=== PATIENT | female | born 1945 | race Caucasian/White ===

== ENCOUNTER 2019-12-28 10:56 | Inpatient (IN) ==
--- NOTE | 2019-12-13 15:42 | PAT Medication Instructions ---
Medication Instructions Date of Service December 13, 2019 Home Medications acetaminophen [Arthritis Pain Reliever] 1,300 mg PO Q12H PRN ascorbic acid (vitamin C) 1,000 mg PO QAM aspirin [Aspir-81] 81 mg PO HS bisoprolol fumarate 2.5 mg PO QAM budesonide-formoterol [Symbicort] 2 puff INHALATION BID calcium carbonate [Calcium 600] 600 mg PO BID cholecalciferol (vitamin D3) 125 mcg PO BID diphenoxylate-atropine 1 tab PO Q4H PRN ferrous sulfate 325 mg PO 5XWK montelukast 10 mg PO HS multivitamin 1 tab PO QAM pravastatin 40 mg PO HS turmeric root extract 1,000 mg PO BID vitamin B complex 1 tab PO QAM STOP taking 2 weeks before surgery If surgery is within 2 weeks, stop taking as soon as possible. turmeric root extract 1,000 mg PO BID DO NOT take the morning of surgery acetaminophen [Arthritis Pain Reliever] 1,300 mg PO Q12H PRN ascorbic acid (vitamin C) 1,000 mg PO QAM calcium carbonate [Calcium 600] 600 mg PO BID cholecalciferol (vitamin D3) 125 mcg PO BID diphenoxylate-atropine 1 tab PO Q4H PRN ferrous sulfate 325 mg PO 5XWK multivitamin 1 tab PO QAM vitamin B complex 1 tab PO QAM Take morning of surgery With a small sip of water, OTHERWISE NOTHING TO EAT OR DRINK AFTER MIDNIGHT: bisoprolol fumarate 2.5 mg PO QAM budesonide-formoterol [Symbicort] 2 puff INHALATION BID Take evening before surgery acetaminophen [Arthritis Pain Reliever] 1,300 mg PO Q12H PRN (if needed) aspirin [Aspir-81] 81 mg PO HS budesonide-formoterol [Symbicort] 2 puff INHALATION BID calcium carbonate [Calcium 600] 600 mg PO BID cholecalciferol (vitamin D3) 125 mcg PO BID diphenoxylate-atropine 1 tab PO Q4H PRN (if needed) montelukast 10 mg PO HS pravastatin 40 mg PO HS Other Notes If you have any questions please call us at [phone] or [phone] or [phone] or [phone]
--- NOTE | 2019-12-14 10:23 | Anesthesiology Consultation ---
Date of Service December 14, 2019 Assessment & Plan (1) Encounter for pre-operative examination: COVID Status: As of 12/13 assessment, patient denies travel to endemic area, known exposure/sick contacts, or symptoms of COVID19. Patient instructed that they and their household members must follow strict social distancing guidelines, wear a mask in public and avoid travel for 14 days prior to surgery. Preoperative COVID19 testing to be completed prior to surgery per surgeon's arra ngements. Patient made aware to self-isolate as much as possible between COVID testing and surgery. Chart Review Chart Review: Acceptable Risk for Surgery (pending PCP clearance 12/14, note to cardio re: abnormal EKG, await response) and Patient seen in Pre Admission Testing Teaching & Discussion Instructed NPO after midnight before surgery, except medications with 15 cc of water. Medication instructions provided according to the PAT guidelines. History Surgery Operation Date: 12/28/19 10:05 Proposed Procedures p L4-L5 Decompression and Fusion, Spinal Cord Monitoring - Boubacar Pina, Height/Weight Height: 5 ft 2 in Weight: 90.8 kg Allergies Allergy/AdvReac Type Severity Reaction Status Date / Time hydromorphone [From Dilaudid] Allergy Unknown ITCHY Verified 12/08/19 11:50 Iodinated Contrast Media Allergy Unknown ITCHING Verified 12/08/19 11:50 codeine AdvReac Unknown NAUSEA AND Verified 12/08/19 11:50 VOMITING duloxetine [From Cymbalta] AdvReac Unknown Unknown Verified 12/08/19 11:50 Penicillins AdvReac Unknown FOGGY Verified 12/08/19 11:50 HEAD, DISORIENTED tramadol AdvReac Unknown Unknown Verified 12/08/19 11:50 Medications Home Medications Medication Instructions Recorded Confirmed Last Taken acetaminophen [Arthritis Pain 1,300 mg PO Q12H PRN 12/08/19 12/08/19 Unknown Reliever] ascorbic acid (vitamin C) [Vitamin 1,000 mg PO QAM 12/08/19 12/08/19 Unknown C] aspirin [Aspir-81] 81 mg PO HS 12/08/19 12/08/19 Unknown bisoprolol fumarate 2.5 mg PO QAM 12/08/19 12/08/19 Unknown budesonide-formoterol [Symbicort] 2 puff INHALATION BID 12/08/19 12/08/19 Unknown calcium carbonate [Calcium 600] 600 mg PO BID 12/08/19 12/08/19 Unknown cholecalciferol (vitamin D3) 125 mcg PO BID 12/08/19 12/08/19 Unknown [Vitamin D3] diphenoxylate-atropine 1 tab PO Q4H PRN 12/08/19 12/08/19 Unknown ferrous sulfate 325 mg PO 5XWK 12/08/19 12/08/19 Unknown montelukast 10 mg PO HS 12/08/19 12/08/19 Unknown multivitamin 1 tab PO QAM 12/08/19 12/08/19 Unknown pravastatin 40 mg PO HS 12/08/19 12/08/19 Unknown turmeric root extract 1,000 mg PO BID 12/08/19 12/08/19 Unknown vitamin B complex 1 tab PO QAM 12/08/19 12/08/19 Unknown Past Medical History Medical History (Updated 12/14/19 @ 11:04 by Niles York) AAA (abdominal aortic aneurysm) UNDER OBSERVATION Arthritis Cardiomyopathy EF 45% with global HK on [address] Pritchett. Chronic back pain Chronic obstructive pulmonary disease Fibromyalgia Hyperlipidemia Hypertension SOBOE (shortness of breath on exertion) Thoracic aortic aneurysm S/P repair at [facility] ~2018 Exercise / Class Metabolic Activity III < 4 Walking/Shop/Light housework (Limited by leg weakness, mild GARCIA with ambulation over longer distances, denies any chest pain) Past Surgical History Surgical History (Updated 12/14/19 @ 10:34 by Niles York) History of appendectomy History of cataract surgery R/L History of cholecystectomy History of colonoscopy History of esophagogastroduodenoscopy (EGD) History of hysterectomy TOTAL History of total hip arthroplasty LEFT Nausea and vomiting after administration of anesthetic agent HX S/P aneurysm repair Thoracic, 2018 [facility]. Past Anesthesia History No Hx of Anesthesia Complications and No Family Hx of Anesthesia Complications History of PONV History of PONV and Hx of Motion Sickness Social History Smoking Status: Former smoker Do You Dip or Chew Tobacco: No Smoking End Date: QUIT 14 YRS AGO Hx Alcohol Use: No Hx Substance Use: No Review of Systems Pt denies any recent chest pain, shortness of breath above baseline, palpitations, cough, fever, URI. + occasional acid reflux. Physical Exam Vital Signs BP: 95/64 (pt denies any symptoms) P: 64bpm SPO2: 93% RA T: 98.3 F R: 16 ENMT Mouth: + dentition abnormality (missing all top teeth and most bottom molars) and + dentures (full upper); no chipped teeth and no loose teeth Thyromental Distance: > or= 3.5 Finger Breadths Mallampati Class: II Neck normal visual inspection; neck extension not limited Respiratory normal respiratory effort Auscultation: lungs clear to auscultation bilaterally prolonged expiratory phase Cardiovascular Rate/Rhythm: regular rate and regular rhythm Heart Sounds: no murmur Vessels: no carotid bruit Extremities: no edema Testing Laboratory Results 12/14/19 10:35 12/14/19 10:35 PT 10.9 Seconds (9.0-12.0) 12/14/19 10:35 INR 1.0 (0.9-1.1) 12/14/19 10:35 APTT 27.7 Seconds (21.0-31.0) 12/14/19 10:35 Urine Color Yellow 12/14/19 10:35 Urine Appearance Clear (Clear) 12/14/19 10:35 Urine pH 6.5 (4.5-7.5) 12/14/19 10:35 Ur Specific [place] 1.015 (1.000-1.030) 12/14/19 10:35 Urine Protein Negative (Negative) 12/14/19 10:35 Urine Glucose (UA) Negative (Negative) 12/14/19 10:35 Urine Ketones Negative (Negative) 12/14/19 10:35 Urine Nitrite Negative (Negative) 12/14/19 10:35 Ur Leukocyte Esterase Negative (Negative) 12/14/19 10:35 Blood Type A Positive 12/14/19 10:35 Antibody Screen NEGATIVE 12/14/19 10:35 Electrocardiogram Date: 12/14/19 Findings: + NSR @ (62bpm) ST and T wave abnormality, consider anterior ischemia. Chest X-Ray Date: 12/14/19 Findings: + NAD Echocardiogram Date: 01/19/18 EF: 45% Left ventricle size is normal. There is mild global LV hypokinesis. No significant valve disease. The aortic root, ascending aorta and aortic arch are normal.
--- NOTE | 2019-12-14 11:43 | XRay Report ---
XR chest Pre-admission PA/Lat HISTORY: 74 years-old Female pat preoperative exam. No acute chest complaints COMPARISON: None TECHNIQUE: FINDINGS: Graft of the descending thoracic aorta with aneurysmal dilation. Cardiomegaly. No pneumothorax, large pleural effusion or overt pulmonary edema. Mild interstitial coarsening of the lung bases suggest at electasis/scarring. Bones appear grossly intact. IMPRESSION: No acute process. ACT 112: Negative or not required by law. The above report was generated using voice recognition software. It may contain grammatical, syntax o r spelling errors. Electronically signed by: Froy Erazo M.D. 12/14/2019 11:41 AM
[2019-12-14 11:45] LABS: Basophils # (auto) 0.04 K/uL (0-0.2); Basophils % (auto) 0.3 %; Eosinophils # (auto) 0.29 K/uL (0-0.5); Eosinophils % (auto) 2.5 %; Hematocrit (blood only) 40.3 % (37-47); Hemoglobin 12.8 g/dL (12.0-16.0); Immature Granulocytes # (auto) 0.04 K/uL (0.00-0.02); Immature Granulocytes % (auto) 0.3 %; Lymphocytes # (auto) 2.62 K/uL (1.2-3.4); Lymphocytes % (auto) 22.4 %; Mean Corpuscular Hemoglobin 27.6 pg (25-34); Mean Corpuscular Hgb Conc 31.8 g/dL (32-36); Mean Corpuscular Volume 86.9 fL (80-100); Mean Platelet Volume 9.3 fL (7.4-10.4); Monocytes # (auto) 0.97 K/uL (0.11-0.59); Monocytes % (auto) 8.3 %; Neutrophils # (auto) 7.75 K/uL (1.4-6.5); Neutrophils % (auto) 66.2 %; Platelet Count 405 K/uL (130-400); RDW Coefficient of Variation 15.5 % (11.5-14.5); RDW Standard Deviation 49.4 fL (36.4-46.3); Red Blood Count 4.64 M/uL (4.2-5.4); White Blood Count 11.71 K/uL (4.8-10.8)
[2019-12-14 12:11] LABS: Partial Thromboplastin Time 27.7 Seconds (21.0-31.0); Prothrombin Time 10.9 Seconds (9.0-12.0)
[2019-12-14 12:33] LABS: Appearance Urine Clear (Clear); Bilirubin Urine Negative (Negative); Blood Urine Negative (Negative); Color Urine Yellow; Glucose Urine UA Negative (Negative); Ketones Urine Negative (Negative); Leukocyte Esterase Urine Negative (Negative); Nitrite Urine Negative (Negative); Protein Urine Negative (Negative); Specific Gravity Urine 1.015 (1.000-1.030); Urobilinogen Urine Negative (Negative); pH Urine 6.5 (4.5-7.5)
--- NOTE | 2019-12-14 13:10 | Electrocardiogram Report ---
Test Reason : Blood Pressure : / mmHG Vent. Rate : 062 BPM Atrial Rate : 062 BPM P-R Int : 146 ms QRS Dur : 090 ms QT Int : 418 ms P-R-T Axes : 062 058 071 degrees QTc Int : 424 ms Normal sinus rhythm Abnormal ECG No previous ECGs available Confirmed by Aron Juarez ([id number]) on 12/14/2019 1:10:38 PM Referred By: Boubacar Pina Confirmed By:Aron Juarez
[2019-12-14 14:12] LABS: BUN Creatinine Ratio 20.5 (10-20); Calcium 10.6 mg/dl (8.5-10.1); Est GFR (African American) 78.2; Est GFR (Non-African American) 67.5; Potassium 4.4 mmol/L (3.5-5.1)
[~2019-12-28 10:56] MED LIST: CEFAZOLIN 2000MG 2,000 MG/15 ML SYR IV SCH; CLINDAMYCIN 600 MG/54 ML BAG IV SCH; GABAPENTIN 300 MG CAP PO SCH; LR 15ML/HR IV SCH
[2019-12-28] MEDS ORDERED: LARYING-O-JET KIT (LTA) ONE (11:50)
[2019-12-28] MEDS ORDERED: LIDOCAINE HCL 2% 2 ML VIAL/AMP(20MG/ML) INFIL ONE (11:50)
[2019-12-28] MEDS ORDERED: fentaNYL citrate 100 MCG/2 ML VIAL ONE ×2 (11:51→15:39)
[2019-12-28] MEDS ORDERED: MIDAZOLAM HCL 1 MG/ML 2ML VIAL ONE (11:51)
[2019-12-28] MEDS ORDERED: ROCURONIUM BROMIDE 10 MG/ML 5 ML VIAL IV ONE (11:52)
[2019-12-28] MEDS ORDERED: ONDANSETRON INJ 2 MG/ML 2 ML VIAL ONE (11:52)
[2019-12-28] MEDS ORDERED: PROPOFOL IV EMULSION 10 MG/ML 20 ML VIAL IV ONE (11:52)
[2019-12-28] MEDS ORDERED: DEXAMETHASONE SOD INJ 4 MG/ML VIAL ONE (11:52)
[2019-12-28] MEDS ORDERED: NEOSTIGMINE METHYLSULFATE 1 MG/ML 10ML VIAL ONE (11:52)
[2019-12-28] MEDS ORDERED: GLYCOPYRROLATE 0.2 MG/ML VIAL ONE (11:52)
[2019-12-28] MEDS ORDERED: HYDROmorphone INJ 2 MG/ML SYR/VIAL IV PRN (12:43)
[2019-12-28] MEDS ORDERED: ATROPINE SULFATE 0.1 MG/ML 10ML SYR IV PRN (12:43)
[2019-12-28] MEDS ORDERED: ONDANSETRON INJ 2 MG/ML 2 ML VIAL IV PRN ×3 (12:43→16:58)
[2019-12-28] MEDS ORDERED: ePHEDrine sulfate 50 MG/ML AMP IV PRN (12:43)
[2019-12-28] MEDS ORDERED: METOCLOPRAMIDE HCL INJ 5 MG/ML 2 ML VIAL IV PRN ×3 (12:43→16:58)
[2019-12-28] MEDS ORDERED: PROMETHAZINE HCL 12.5 MG in SODIUM CHLORIDE 0.9% 50 ML IV PRN ×2 (12:43→16:58)
--- NOTE | 2019-12-28 13:34 | History & Physical Bridge Note ---
Date of Service December 28, 2019 History & Physical Bridge Note I have examined the patient, reviewed the History & Physical and in the interval since the performance of the History & Physical I have noted the following changes of clinical significance: no changes noted
--- NOTE | 2019-12-28 13:35 | History & Physical Report ---
Date of Service December 28, 2019 Assessment & Plan (1) Neurogenic claudication due to lumbar spinal stenosis: Admission and Anticipated Discharge Date Admission Date: L4-L5 decompression fusion History of Present Illness Chief Complaint: Back and leg pain Primary Care Provider: NO PCP This is a 74-year-old female presents with back and leg pain after failing course of nonoperative care is here for surgical intervention. Allergies Allergy/AdvReac Type Severity Reaction Status Date / Time hydromorphone [From Dilaudid] Allergy Mild ITCHY Verified 12/28/19 11:37 Iodinated Contrast Media Allergy Mild ITCHING Verified 12/28/19 11:37 codeine AdvReac Mild NAUSEA AND Verified 12/28/19 11:37 VOMITING Penicillins AdvReac Mild FOGGY Verified 12/28/19 11:37 HEAD, DISORIENTED duloxetine [From Cymbalta] AdvReac Unknown Unknown Verified 12/28/19 11:37 tramadol AdvReac Unknown Unknown Verified 12/28/19 11:37 Home Medications Home Medications Medication Instructions Recorded Confirmed Type acetaminophen [Arthritis Pain 1,300 mg PO Q12H PRN 12/08/19 12/28/19 History Reliever] ascorbic acid (vitamin C) [Vitamin 1,000 mg PO QAM 12/08/19 12/28/19 History C] aspirin [Aspir-81] 81 mg PO HS 12/08/19 12/28/19 History bisoprolol fumarate 2.5 mg PO QAM 12/08/19 12/28/19 History budesonide-formoterol [Symbicort] 2 puff INHALATION BID 12/08/19 12/28/19 History calcium carbonate [Calcium 600] 1,200 mg PO DAILY 12/08/19 12/28/19 History cholecalciferol (vitamin D3) 125 mcg PO DAILY 12/08/19 12/28/19 History [Vitamin D3] diphenoxylate-atropine 1 tab PO Q4H PRN 12/08/19 12/28/19 History ferrous sulfate 325 mg PO 5XWK 12/08/19 12/28/19 History montelukast 10 mg PO HS 12/08/19 12/28/19 History multivitamin 1 tab PO QAM 12/08/19 12/28/19 History pravastatin 40 mg PO HS 12/08/19 12/28/19 History turmeric root extract 1,000 mg PO BID 12/08/19 12/28/19 History vitamin B complex 1 tab PO QAM 12/08/19 12/28/19 History Past Med/Surg History Medical History (Updated 12/28/19 @ 13:35 by Boubacar Pina DO) AAA (abdominal aortic aneurysm) UNDER OBSERVATION Arthritis Cardiomyopathy EF 45% with global HK on [address] Pritchett. Chronic back pain Chronic obstructive pulmonary disease Fibromyalgia Hyperlipidemia Hypertension SOBOE (shortness of breath on exertion) Thoracic aortic aneurysm S/P repair at [facility] ~2018 Surgical History History of appendectomy History of cataract surgery R/L History of cholecystectomy History of colonoscopy History of esophagogastroduodenoscopy (EGD) History of hysterectomy TOTAL History of total hip arthroplasty LEFT Nausea and vomiting after administration of anesthetic agent HX S/P aneurysm repair Thoracic, 2018 [facility]. Social History Smoking Status: Former smoker Smoking End Date: QUIT 14 YRS AGO; Second Hand Exposure: Yes (PARENTS /SPOUSE USED TO SMOKE); Do You Dip or Chew Tobacco: No; Hx Alcohol Use: No Hx Substance Use: No Preferred Language: Yoruba Communication Ability: Effective Nail Technician Required: No Beliefs That Will Affect Care: None Current Living Situation: Spouse Other Information That Helps Us Care for You: No Feels Safe at Home: Yes Safety Concerns: Feels Safe At This Time Physical Exam Physical Exam: Patient is alert and oriented neurologically intact. Heart regular rate and rhythm. Lungs clear to auscultation. Results & Data ([facility]) Vital Signs (Past 12 Hours) Vital Signs Temp Pulse Resp BP Pulse Ox 12/28/19 11:46 37.2 C 65 18 144/99 H 93
[2019-12-28] MEDS ORDERED: BUPIVACAINE/EPINEPHRINE 0.25% 1:200,000 30 ML VIAL ONE (13:53)
[2019-12-28] MEDS ORDERED: BACITRACIN INJ 50,000 UNIT VIAL ONE (13:53)
[2019-12-28] MEDS ORDERED: FLOSEAL HEMOSTATIC MATRIX 10ML TOP ONE (15:37)
--- NOTE | 2019-12-28 15:43 | Operative Report ---
Post Operative Report Pre & Post Diagnosis Operation Date: 12/28/19 12:55 <No data on this case meets the specified criteria> I identified the patient and participated in the time-out.: Yes Procedure Operation Date: 12/28/19 12:55 #1 lumbar decompression with bilateral medial facetectomies and foraminotomies L3-4 and L4-5 per #2 posterior spinal fusion L4-5 per #3 placement posterior instrumentation L4-5 per #4 interbody fusion L4-5. #5 placed a peek cage 12 x 22 mm at L4-5. #6 placement of locally harvested morselized autograft in the posterior gutters per #7 placement infuse collagen sponge, master graft and posterior gutters and ostial amp and interbody space. Surgeon Boubacar Pina, Quality Control Operator Lorena Fritz Estimated Blood Loss 150 Findings See Below Patient is 5 foot 2 inches tall weighing over 89 kg with a BMI in excess of 36. Patient's body habitus did add increased technical difficulty requiring her deepest retractors and longus instruments in order to perform her procedure. This at least 25% increase in operative time. Specimens None Indications This is a 74-year-old female who presents with marked clinical status significa nt sciatica and instability at L4-5 and subsequently here for surgical intervention. Description of Procedure Patient was met with identified informed consent obtained. Patient was then taken to the operative suite underwent an patient placed in a prone position on the Dwain table on top of the Chandu frame. All bony prominences well-padded eyes inspected to ensure no external pressure placed upon the. This point the lumbar spine was prepped and draped in a sterile fashion. Sharp dissection with assistance of Bovie cautery was performed down to and exposing the lamina and transverse processes of L4 and L5 bilaterally. From caudal cephalad fashion complete laminectomy of L4 and partial laminectomy of L3 was performed including bilateral medial facetectomies and foraminotomies addressing stenosis. Pedicle screws were then placed in L4 and L5 bilaterally with assistance of fluoroscopy the proper sized jase placed. By way of a transforaminal approach on the right a complete discectomy was performed endplates coated to subcortical bleeding bone and a 12 x 22 mm peek cage with osteo-bone graft tapped in position. The rods were then locked into final position bilaterally. The transverse processes of L4 and L5 bur to subcortical bleeding bone. Infuse collagen sponge mass graft local autograft was placed in the posterior lateral gutters. 15 round THA drain inserted. The incision was then closed with 1 Vicryl the fascia 2-0 Vicryl subcutaneously and 4 Monocryl for final skin closure. Steri-Strip sterile dressings placed. Patient waken taken PACU stable condition. Please note spinal cord monitoring visualized at the procedure no changes noted. Lastly Lorena Fritz was present at the entire surgery involved in patient positioning complex portions of the procedure and final skin closure. I attest to the content of the Intraoperative Record and any orders documented therein. Any exceptions are noted below.
--- NOTE | 2019-12-28 15:48 | Fluoroscopy Report ---
FL lumbar spine 2-3V CLINICAL HISTORY: L4-5 DECOMPRESSION AND FUSION COMPARISON STUDY: FLUOROSCOPY TIME: 16 seconds. NUMBER OF FLUOROSCOPIC IMAGES: 2 FINDINGS: 2 intraoperative fluoroscopic spot images reveal postsurgical changes of an L 4-5 discectom y and interbody fusion. There is posterior pedicle screw fixation. IMPRESSION: Postsurgical changes of an L4-5 spinal decompression and fusion. ACT 112: Negative or not required by law. Electronically signed by: Lauro Sierra M.D. 12/28/2019 3:46 PM
[2019-12-28] MEDS: fentaNYL citrate 100 MCG/2 ML VIAL IV PRN ×2 (16:14→16:19)
--- NOTE | 2019-12-28 16:35 | Anesthesiology Progress Note ---
Date of Service December 28, 2019 Anesthesia Post Procedure Vital Signs Vital Signs: Temp Pulse Pulse Resp BP Pulse Ox 12/28/19 16:34 36.9 C 55 L 16 132/72 95 12/28/19 16:25 70 16 132/84 95 12/28/19 16:15 50 L 16 143/68 H 99 12/28/19 16:05 60 16 122/91 99 12/28/19 15:58 37.0 C 60 16 137/80 99 12/28/19 11:46 37.2 C 65 18 144/99 H 93 Pain Intensity Lower Back: Pain Intensity: 4 Transfer of Care Handoff Completed per policy Notes Mental Status: alert / awake / arousable and participated in evaluation Patient Amnestic to Procedure: Yes Nausea / Vomiting: adequately controlled Pain: adequately controlled Airway Patency, RR, SpO2: stable & adequate BP & HR: stable & adequate Hydration State: stable & adequate Anesthetic Complications: no major complications apparent and Pt Satisfied with anesthetic care
[2019-12-28] MEDS ORDERED: DO NOT ADMINISTER FLU VACCINE PRN ×2 (16:58)
[2019-12-28] MEDS ORDERED: ACETAMINOPHEN 500 MG TAB PO PRN (16:58)
[2019-12-28] MEDS ORDERED: LORazepam 0.5 MG/1 ML VIAL IV PRN ×2 (16:58)
[2019-12-28] MEDS ORDERED: DO NOT ADMINISTER PNEUMOCOCCAL VACCINE PRN ×2 (16:58)
[2019-12-28] MEDS ORDERED: SOD PHOSPHATE/SOD BIPHOSPHATE ENEMA 132 ML BTL PR PRN ×2 (16:58)
[2019-12-28] MEDS ORDERED: FAMOTIDINE 20 MG TAB PO PRN ×2 (16:58)
[2019-12-28] MEDS ORDERED: NALOXONE HCL 0.4 MG/1 ML VIAL/CARP IV PRN ×2 (16:58)
[2019-12-28] MEDS ORDERED: ALUMINUM/MAGNESIUM SUSP 30 ML UDC PO PRN ×2 (16:58)
[2019-12-28] MEDS ORDERED: ONDANSETRON 4 MG OD TAB PO PRN ×2 (16:58)
[2019-12-28] MEDS ORDERED: MAGNESIUM HYDROXIDE SUSP 30 ML UDC PO PRN ×2 (16:58)
[2019-12-28] MEDS ORDERED: ACETAMINOPHEN 1,000 MG/100 ML VIAL IV PRN (16:58)
[2019-12-28] MEDS ORDERED: bisacodyL 10 MG SUPP PR PRN ×2 (16:58)
[2019-12-28] MEDS ORDERED: LORazepam 0.5 MG TAB PO PRN ×2 (16:58)
--- NOTE | 2019-12-28 17:42 | Consultation ---
Date of Consultation December 28, 2019 Assessment & Plan (1) Neurogenic claudication due to lumbar spinal stenosis: Status post L4-L5 decompression fusion by Dr. Pina POD #0 EBL 150 mL Tolerated procedure well, is having some postoperative nausea Pain/wound management per Ortho Activity and therapy as directed by Ortho Encourage incentive spirometry, wean O2 as able Monitor H&H Preop lab work was reviewed, she did have elevated calcium at 10.6 -repeat in a.m. Currently receiving IVF LR 100 cc/h, monitor volume status closely in setting of cardiomyopathy Would DC IVF when tolerating p.o. (2) Cardiomyopathy: Follows [facility] EF 45%, last echo preoperatively, compared to echo in 2018 prior to endovascular repair of thoracic aneursym and unchanged continue ASA, statin, bisoprolol daily weights, heart healthy diet (3) Chronic obstructive pulmonary disease: No acute exacerbation Continue Symbicort PRN albuterol (4) Hypertension: Blood pressure control postoperatively Continue bisoprolol (5) Thoracic aortic aneurysm: History of endovascular repair in 2018 in [place], [place] Stable (6) Hyperlipidemia: Continue statin (7) DVT prophylaxis: Per primary Disposition: per primary Follow up: PCP Dr. Mccabe upon discharge Pt was seen and examined in collaboration with Dr. Villanueva, please see addendum Thank you for this consultation. We will follow the patient with you during their hospital stay. You can reach a member of the [facility] Team 18/11 via pager @ [phone]. Supervising Physician Co-Signing Physician Notes Attending Addendum: care coordinated with [facility] please refer to her notes for full details, I agree with her notes patient seen and examined, records reviewed by myself as well on exam, patient seen resting in bed, comfortable, watching TV, not in distress Reports mild nausea and back pain improving with medications Denies chest pain, shortness of breath, dizziness, palpitations, abdominal pain no other symptoms VS noted and reviewed oriented x 3, not in distress, speaks in sentences with no effort nor accessory muscle use normal rate, regular rhythm, no murmurs clear breath sounds bilaterally non distended, soft, nontender no bipedal edema, erythema, warmth no neuro deficits No labs yet for today ASSESSMENT AND PLAN Status post back surgery Remains stable overall Monitor hemoglobin DVT prophylaxis per surgery service History of coronary disease, cardiomyopathy Euvolemic at this time Monitor while on IV fluids, decrease fluids to 60 cc/h to prevent volume overload Continue usual aspirin, statin, bisoprolol COPD Not in exacerbation Continue bronchodilators other diagnoses and plan of care as per [facility] Marie[facility]agust[facility] notes Thank you for this consultation. We will follow the patient with you during their hospital stay. You can reach a member of the [facility] Team 18/11 via pager @ [phone]. Niles Villanueva MD History of Present Illness Requesting Physician: Dr. Pina Reason for Consultation: Post op medical management Attending Physician: Boubacar Pina, DO History of Present Illness This is a 74 year old F who has a significant PMH of HTN, HLD, hx of thoracic aortic aneursym s/p endovascular repair, COPD, hx of tobacco abuse, CAD, Depression with Anxiety who presents to [facility] for elective lumbar procedure. Her PCP is Dr. Mccabe of [facility]. Currently complaining of dry heaving and lower back pain 02/04. She denies any postop vomiting but has been having dry heaving since procedure. She denies any fever, chills, sweats, lightheadedness, dizziness, vertigo, chest pain, shortness with, palpitations, abdominal pain. She did not have a Arango catheter placed. Prior to procedure she denies difficulty moving bowels or passing urine. She does have history of thoracic aortic aneurysm status post endovascular repair in [place]. This is otherwise been stable. She further has history of CAD which was diagnosed via calcium CT which revealed moderate extensive calcified plaque in the LAD. Her most recent echocardiogram revealed EF 45% with global hypokinesis which was consistent with prior nuclear stress echo in 2018. She also has known T wave inversions. She follows with [facility]. She is maintained on aspirin, bisoprolol and statin therapy. She denies history of heart failure. She is a former smoker but denies any current tobacco abuse and very rare alcohol use. She does have history of COPD and partial smoking but otherwise feels this is controlled on Symbicort. Allergies Allergy/AdvReac Type Severity Reaction Status Date / Time hydromorphone [From Dilaudid] Allergy Mild ITCHY Verified 12/28/19 11:37 Iodinated Contrast Media Allergy Mild ITCHING Verified 12/28/19 11:37 codeine AdvReac Mild NAUSEA AND Verified 12/28/19 11:37 VOMITING Penicillins AdvReac Mild FOGGY Verified 12/28/19 11:37 HEAD, DISORIENTED duloxetine [From Cymbalta] AdvReac Unknown Unknown Verified 12/28/19 11:37 tramadol AdvReac Unknown Unknown Verified 12/28/19 11:37 Home Medications Home Medications Medication Instructions Recorded Confirmed Type acetaminophen [Arthritis Pain 1,300 mg PO Q12H PRN 12/08/19 12/28/19 History Reliever] ascorbic acid (vitamin C) [Vitamin 1,000 mg PO QAM 12/08/19 12/28/19 History C] aspirin [Aspir-81] 81 mg PO HS 12/08/19 12/28/19 History bisoprolol fumarate 2.5 mg PO QAM 12/08/19 12/28/19 History budesonide-formoterol [Symbicort] 2 puff INHALATION BID 12/08/19 12/28/19 History calcium carbonate [Calcium 600] 1,200 mg PO DAILY 12/08/19 12/28/19 History cholecalciferol (vitamin D3) 125 mcg PO DAILY 12/08/19 12/28/19 History [Vitamin D3] diphenoxylate-atropine 1 tab PO Q4H PRN 12/08/19 12/28/19 History ferrous sulfate 325 mg PO 5XWK 12/08/19 12/28/19 History montelukast 10 mg PO HS 12/08/19 12/28/19 History multivitamin 1 tab PO QAM 12/08/19 12/28/19 History pravastatin 40 mg PO HS 12/08/19 12/28/19 History turmeric root extract 1,000 mg PO BID 12/08/19 12/28/19 History vitamin B complex 1 tab PO QAM 12/08/19 12/28/19 History Patient History Medical History (Updated 12/28/19 @ 17:44 by Ida Joseph PA-C) AAA (abdominal aortic aneurysm) UNDER OBSERVATION Arthritis Cardiomyopathy EF 45% with global HK on [address] Pritchett. Chronic back pain Chronic obstructive pulmonary disease Fibromyalgia Hyperlipidemia Hypertension SOBOE (shortness of breath on exertion) Thoracic aortic aneurysm S/P repair at [facility], [place] ~2018 Surgical History History of appendectomy History of cataract surgery R/L History of cholecystectomy History of colonoscopy History of esophagogastroduodenoscopy (EGD) History of hysterectomy TOTAL History of total hip arthroplasty LEFT Nausea and vomiting after administration of anesthetic agent HX S/P aneurysm repair Thoracic, 2018 [facility]. Family History (Updated 12/28/19 @ 17:40 by Ida Joseph PA-C) Denies family history of Heart disease Social History Smoking Status: Former smoker Smoking End Date: QUIT 14 YRS AGO; Second Hand Exposure: Yes (PARENTS /SPOUSE USED TO SMOKE); Do You Dip or Chew Tobacco: No; Hx Alcohol Use: No Hx Substance Use: No Preferred Language: Bhutanese Communication Ability: Effective Temple [employer] Required: No Beliefs That Will Affect Care: None Current Living Situation: Spouse Other Information That Helps Us Care for You: No Feels Safe at Home: Yes Safety Concerns: Feels Safe At This Time Review of Systems Review of Systems: All systems reviewed & are unremarkable except as noted in HPI & below Physical Exam Physical Exam: Constitutional: WD/WN, vitals as above, NAD, sitting up in bed, +dry heaves Head: Normocephalic, Atraumatic Eyes: PERRL, conjunctivae normal, anicteric sclerae ENMT: external ear and nose normal, oropharynx normal Neck: trachea midline, no thyromegaly normal visual inspection Respiratory: normal respiratory effort, lungs clear to auscultation, no wheeze, rales, rhonchi. Normal insp/exp effort, no accessory muscle use Cardiovascular: RRR, no murmur, no edema Vessels: no JVD or carotid bruit Chest: normal inspection of chest Abdomen: normal bowel sounds, soft, nontender, no hepatosplenomegaly Musculoskeletal: no cyanosis or clubbing, active ROM x 4 Skin: no rashes, warm and dry normal turgor Neurologic: PERRL, EOMI, accommodation nl, no face palsy, no dysarthria CN's II-XI intact bilaterally and moves all extremities Psychiatric: A+Ox3, euthymic affect Lymphatic: no cervical or axillary lymphadenopathy : deferred Results & Data ([facility]) Vital Signs (Past 12 Hours) Vital Signs Temp Pulse Pulse Resp BP Pulse Ox 12/28/19 16:55 36.5 C 51 L 16 136/79 96 12/28/19 16:34 36.9 C 55 L 16 132/72 95 12/28/19 16:25 70 16 132/84 95 12/28/19 16:15 50 L 16 143/68 H 99 12/28/19 16:05 60 16 122/91 99 12/28/19 15:58 37.0 C 60 16 137/80 99 12/28/19 11:46 37.2 C 65 18 144/99 H 93 Laboratory Results Preop CBC: WBC 11.71, H&H 12.8 and 40.3, platelet 405 BMP: NA 140, K4.4, BUN 8, creatinine .86, CA 10.6 Diagnostic Findings CXR: FINDINGS: Graft of the descending thoracic aorta with aneurysmal dilation. Cardiomegaly. No pneumothorax, large pleural effusion or overt pulmonary edema. Mild interstitial coarsening of the lung bases suggest atelectasis/scarring. Bones appear grossly intact. IMPRESSION: No acute process. Lumbar Spine CT: IMPRESSION: Postsurgical changes of an L4-5 spinal decompression and fusion. Medications Administered Gabapentin (Gabapentin 300 Mg Cap) 300 mg PO PREOP ABHI Stop: 12/28/19 18:00 Last Admin: 12/28/19 12:14 Dose: 300 mg Documented by: [id number] Lactated Ringer's (Lr) 1,000 mls @ 15 mls/hr IV .Q24H ABHI Stop: 12/29/19 05:59 Last Infusion: 12/28/19 14:09 Dose: 0 mls/hr Documented by: [id number] Admin: 12/28/19 12:00 Dose: 15 mls/hr Documented by: [id number] Clindamycin Phosphate (Cleocin) 600 mg in 54 mls @ 100 mls/hr IV PREOP ABHI Stop: 12/29/19 05:59 Last Infusion: 12/28/19 17:14 Dose: 0 mls/hr Documented by: [id number] Admin: 12/28/19 14:09 Dose: 100 mls/hr Documented by: [id number] Cefazolin Sodium (Ancef 2000mg) 2,000 mg in 15 mls @ 3.75 mls/min IV PREOP ABHI; Protocol Stop: 12/28/19 18:00 Last Admin: 12/28/19 14:14 Dose: Not Given Documented by: [id number] Discontinued Medications Bacitracin (Bacitracin Inj 50,000 Unit Vial) Confirm Administered Dose 50,000 units .ROUTE .STK-MED ONE Stop: 12/28/19 13:54 Last Admin: 12/28/19 15:40 Dose: 50,000 units Documented by: [id number] Bupivacaine HCl/Epinephrine Bitart (Bupivacaine/Epinephrine 0.25% 1:200,000 30 Ml Vial) Confirm Administered Dose 30 ml .ROUTE .STK-MED ONE Stop: 12/28/19 13:54 Last Admin: 12/28/19 15:40 Dose: 30 ml Documented by: [id number] Fentanyl Citrate (Fentanyl Citrate 100 Mcg/2 Ml Vial) 50 mcg IV Q5M PRN PRN Reason: PACU Use Only-Pain Stop: 12/28/19 20:43 Last Admin: 12/28/19 16:19 Dose: 50 mcg Documented by: [id number] Admin: 12/28/19 16:14 Dose: 50 mcg Documented by: [id number] Miscellaneous ( Floseal Hemostatic Matrix 10ml) 20 ml TOP ONCE ONE Stop: 12/28/19 15:38 Last Admin: 12/28/19 15:39 Dose: 10 ml Documented by: [id number] ECG Rate (beats per minute): 62 Rhythm: normal sinus
[2019-12-28] MEDS ORDERED: ALBUTEROL HFA 8 GM INHALER INH PRN (17:52)
[2019-12-28] MEDS: MoRPHine SULFATE 2 MG/ML CARP IV PRN (18:20)
[2019-12-28] MEDS: LACTATED RINGER'S 1,000 ML IV SCH (18:20)
[2019-12-28] MEDS: ASPIRIN 81 MG ECTAB PO SCH (20:19)
[2019-12-28] MEDS: DOCUSATE SODIUM/SENNA 50/8.6MG TAB PO SCH (20:19)
[2019-12-28] MEDS: MONTELUKAST SODIUM 10 MG TABLET PO SCH (20:19)
[2019-12-28] MEDS: FLUTICASONE/VILANTEROL 200/25MCG 14 PUFFS/INHALER INH SCH (20:21)
[2019-12-28] MEDS: PRAVASTATIN SOD 40 MG TAB PO SCH (20:22)
[2019-12-28] MEDS ORDERED: DOCUSATE SODIUM/SENNA 50/8.6MG TAB PO SCH (21:00)
[2019-12-28] MEDS: CLINDAMYCIN 600 MG in DEXTROSE 5% 50 ML IV SCH (21:22)
[2019-12-29] MEDS: MoRPHine SULFATE 2 MG/ML CARP IV PRN ×2 (00:05→06:37)
[2019-12-29] MEDS: LACTATED RINGER'S 1,000 ML IV SCH ×2 (03:00→09:26)
[2019-12-29] MEDS: POLYETHYLENE (MIRALAX) 17 GM PACK PO SCH ×4 (05:12→23:35)
[2019-12-29] MEDS: CLINDAMYCIN 600 MG in DEXTROSE 5% 50 ML IV SCH (05:13)
[2019-12-29] MEDS ORDERED: POLYETHYLENE (MIRALAX) 17 GM PACK PO SCH (06:00)
[2019-12-29 06:08] LABS: Eosinophils # (auto) 0.01 K/uL (0-0.5); Eosinophils % (auto) 0.1 %; Hematocrit (blood only) 36.4 % (37-47); Hemoglobin 10.8 g/dL (12.0-16.0); Immature Granulocytes # (auto) 0.04 K/uL (0.00-0.02); Immature Granulocytes % (auto) 0.3 %; Lymphocytes # (auto) 1.25 K/uL (1.2-3.4); Lymphocytes % (auto) 8.4 %; Mean Corpuscular Hemoglobin 26.6 pg (25-34); Mean Corpuscular Hgb Conc 29.7 g/dL (32-36); Mean Corpuscular Volume 89.7 fL (80-100); Mean Platelet Volume 9.1 fL (7.4-10.4); Monocytes # (auto) 1.12 K/uL (0.11-0.59); Monocytes % (auto) 7.5 %; Neutrophils # (auto) 12.52 K/uL (1.4-6.5); Neutrophils % (auto) 83.7 %; Platelet Count 365 K/uL (130-400); RDW Coefficient of Variation 15.7 % (11.5-14.5); RDW Standard Deviation 51.4 fL (36.4-46.3); Red Blood Count 4.06 M/uL (4.2-5.4); White Blood Count 14.94 K/uL (4.8-10.8)
[2019-12-29 06:42] LABS: BUN Creatinine Ratio 21.1 (10-20); Calcium 9.1 mg/dl (8.5-10.1); Creatinine Clr Calc Pharmacy 66.2 ml/min; Est GFR (African American) 85.4; Est GFR (Non-African American) 73.7; Potassium 4.3 mmol/L (3.5-5.1)
[2019-12-29] MEDS: CALCIUM CARBONATE 1250MG TAB PO SCH (07:55)
[2019-12-29] MEDS: BISOPROLOL FUMARATE 5 MG TAB PO SCH (07:55)
[2019-12-29] MEDS: FERROUS SULFATE 325 MG TAB PO SCH (07:55)
[2019-12-29] MEDS: ASCORBIC ACID 500 MG TAB PO SCH (07:56)
[2019-12-29] MEDS: CHOLECALCIFEROL 1,000 UNITS 25 MCG TAB PO SCH (07:57)
[2019-12-29] MEDS: MULTIVITAMIN TAB PO SCH (07:57)
[2019-12-29] MEDS: VITAMIN B COMPLEX TAB PO SCH (07:57)
[2019-12-29] MEDS: MoRPHine SULFATE 4 MG/ML 1 ML CARP\\VIAL IV PRN ×2 (09:24→14:47)
--- NOTE | 2019-12-29 13:02 | Hospitalist Progress Note ---
Date of Service December 29, 2019 Assessment & Plan (1) Neurogenic claudication due to lumbar spinal stenosis: Lumbar spinal stenosis Acute postop blood loss anemia S/P L4-L5 decompression fusion by Dr. Pina POD #1 Pain control Activity, DVT prophylaxis, wound care as per primary team Continue bowel regimen to prevent constipation Monitor CBC Continue incentive spirometry Monitor volume status while on IV fluids Orthopedics on board (2) Cardiomyopathy: Follows [facility] Last EF 45% continue home medications Monitor volume status (3) Chronic obstructive pulmonary disease: Hypoxia No acute exacerbation Continue home inhalers PRN albuterol Check CXR in AM Titrate supplemental oxygen to keep sats between 88 to 92%. (4) Hypertension: Blood pressure relatively low Continue bisoprolol with holding parameters monitor (5) Thoracic aortic aneurysm: H/O Endovascular repair in 2018 in [place], [place] Stable (6) Hyperlipidemia: Continue statin (7) DVT prophylaxis: Per primary Service Code Status Full Code Disposition As per Primary Service Admission and Anticipated Discharge Date Admission Date: December 28, 2019 Subjective Patient is seen and examined at bedside Complains of pain at surgical site with movement Requiring supplemental oxygen to maintain saturations Denies chest pain, shortness of breath, dizziness, nausea, abdominal pain Offers no other complaints Review of Systems Review of Systems: All systems reviewed & are unremarkable except as noted in HPI & below Physical Exam Physical Exam: Physical Exam: Vitals signs as noted above General Appearance:Obese, no apparent distress Head: normocephalic, Atraumatic Eyes: normal inspection, EOMI Neck: supple, Trachea midline Respiratory/Chest: Normal breath sounds, CTA Cardiovascular: S1, S2, No murmur Abdomen/GI:Soft, Non tender, Bowel sounds present Back: Surgical site in dressing, +Drain Extremities/Musculoskelatal:normal inspection, no edema Neurologic/Psych:AAOX3, grossly no focal neurological deficits Skin: normal color, warm Results & Data Results & Data ([facility]) Vital Signs (Past 12 Hours) Vital Signs Temp Pulse Resp BP Pulse Ox 12/29/19 12:34 36.9 C 61 16 104/66 91 12/29/19 10:23 92 12/29/19 08:00 63 18 93 12/29/19 07:31 36.8 C 62 16 109/66 92 12/29/19 03:05 36.5 C 59 L 15 102/67 91 Laboratory Results Short CBC 12/29/19 Range/Units 05:28 WBC 14.94 H (4.8-10.8) K/uL Hgb 10.8 L (12.0-16.0) g/dL Hct 36.4 L (37-47) % Plt Count 365 (130-400) K/uL BMP 12/29/19 05:28 Sodium 139 Potassium 4.3 Chloride 108 H Carbon Dioxide 23 BUN 17 Creatinine 0.80 Glucose 138 H Calcium 9.1
--- NOTE | 2019-12-29 13:46 | Orthopedic Progress Note ---
Date of Service December 29, 2019 Assessment & Plan (1) Neurogenic claudication due to lumbar spinal stenosis: Admission and Anticipated Discharge Date Admission Date: December 28, 2019 This time we will continue physical therapy monitor THA output hopefully disc harge home in the next few days. Subjective Back pain controlled leg symptoms markedly improved. Physical Exam Physical Exam: Patient is in the chair at the bedside. Is comfortable. Is good strength testing. Results & Data ([facility]) Vital Signs (Past 12 Hours) Vital Signs Temp Pulse Resp BP Pulse Ox 12/29/19 12:34 36.9 C 61 16 104/66 91 12/29/19 10:23 92 12/29/19 08:00 63 18 93 12/29/19 07:31 36.8 C 62 16 109/66 92 12/29/19 03:05 36.5 C 59 L 15 102/67 91
[2019-12-29] MEDS: HYDROCODONE/ACETAMOPHEN 5/325MG TAB PO PRN ×2 (17:50→23:38)
[2019-12-29] MEDS: MONTELUKAST SODIUM 10 MG TABLET PO SCH (21:12)
[2019-12-29] MEDS: PRAVASTATIN SOD 40 MG TAB PO SCH (21:12)
[2019-12-29] MEDS: ASPIRIN 81 MG ECTAB PO SCH (21:12)
[2019-12-29] MEDS: DOCUSATE SODIUM/SENNA 50/8.6MG TAB PO SCH (21:13)
[2019-12-29] MEDS: FLUTICASONE/VILANTEROL 200/25MCG 14 PUFFS/INHALER INH SCH (21:15)
[2019-12-30] MEDS: POLYETHYLENE (MIRALAX) 17 GM PACK PO SCH ×4 (05:23→23:59)
[2019-12-30] MEDS: HYDROCODONE/ACETAMOPHEN 5/325MG TAB PO PRN ×2 (05:50→12:31)
[2019-12-30 07:14] LABS: Hemoglobin 10.4 g/dL (12.0-16.0); Mean Corpuscular Hemoglobin 27.7 pg (25-34); Mean Corpuscular Hgb Conc 31.5 g/dL (32-36); Mean Platelet Volume 8.7 fL (7.4-10.4); Platelet Count 304 K/uL (130-400); RDW Coefficient of Variation 15.8 % (11.5-14.5); RDW Standard Deviation 50.9 fL (36.4-46.3); Red Blood Count 3.75 M/uL (4.2-5.4); White Blood Count 11.85 K/uL (4.8-10.8)
[2019-12-30] MEDS: FERROUS SULFATE 325 MG TAB PO SCH (07:36)
[2019-12-30] MEDS: MULTIVITAMIN TAB PO SCH (07:36)
[2019-12-30 07:37] LABS: BUN Creatinine Ratio 24.8 (10-20); Calcium 8.5 mg/dl (8.5-10.1); Creatinine Clr Calc Pharmacy 71.6 ml/min; Est GFR (African American) 93.8; Est GFR (Non-African American) 80.9; Potassium 3.9 mmol/L (3.5-5.1)
[2019-12-30] MEDS: VITAMIN B COMPLEX TAB PO SCH (07:37)
[2019-12-30] MEDS: ASCORBIC ACID 500 MG TAB PO SCH (07:37)
[2019-12-30] MEDS: CHOLECALCIFEROL 1,000 UNITS 25 MCG TAB PO SCH (07:37)
[2019-12-30] MEDS: CALCIUM CARBONATE 1250MG TAB PO SCH (07:37)
[2019-12-30] MEDS: BISOPROLOL FUMARATE 5 MG TAB PO SCH (07:38)
--- NOTE | 2019-12-30 08:07 | XRay Report ---
XR chest 1V portable HISTORY: Hypoxia COMPARISON: Chest 12/14/2019. FINDINGS: The heart is normal in size. Tortuous and dilated descending thoracic aorta with an aortic stent remains unchanged. A few bibasilar linear densities suggesting scarring or atelectasis. This re geneva unchanged. No pleural effusions. No pneumothorax. No evidence for pulmonary edema. IMPRESSION: No significant change compared to the prior study. No acute process. ACT 112: Negative or not required by law. Electronically signed by: German Rodriguez M.D. 12/30/2019 8:06 AM
--- NOTE | 2019-12-30 08:09 | Orthopedic Progress Note ---
Date of Service December 30, 2019 Assessment & Plan (1) Neurogenic claudication due to lumbar spinal stenosis: Admission and Anticipated Discharge Date Admission Date: December 28, 2019 We will continue physical therapy today monitor THA output advance her bowel regiment anticipate discharge home tomorrow. Subjective Patient's back pain is controlled leg symptoms markedly improved. Physical Exam Physical Exam: Patient is comfortable is good strength testing. Results & Data ([facility]) Vital Signs (Past 12 Hours) Vital Signs Temp Pulse Resp BP Pulse Ox 12/30/19 07:12 36.4 C L 58 L 16 118/73 93 12/29/19 23:33 37.0 C 61 18 109/64 92
--- NOTE | 2019-12-30 09:15 | Hospitalist Progress Note ---
Date of Service December 30, 2019 Assessment & Plan (1) Neurogenic claudication due to lumbar spinal stenosis: Lumbar spinal stenosis Acute postop blood loss anemia S/P L4-L5 decompression fusion by Dr. Pina POD #2 Pain control, Activity, DVT prophylaxis, wound care as per primary team Continue bowel regimen to prevent constipation Monitor CBC - hgb stable at 10.4 today (10.8 yesterday) Continue incentive spirometry Monitor volume status while on IV fluids Orthopedics on board (2) Cardiomyopathy: Follows [facility] Last EF 45% continue home medications Monitor volume status (3) Chronic obstructive pulmonary disease: No acute exacerbation Continue home inhalers PRN albuterol Check CXR in AM Has been on 2-3L NC O2 with sats ~92%. Will attempt to wean O2 as tolerated in anticipation of discharge - not on home O2 (4) Hypertension: Blood pressure 118/73 - has been on lower end of normal Continue bisoprolol with holding parameters monitor (5) Thoracic aortic aneurysm: H/O Endovascular repair in 2018 in [place], [place] Stable (6) Hyperlipidemia: Continue statin (7) DVT prophylaxis: Per primary Service Code Status Full Code Disposition As per Primary Service Patient seen in collaboration with Dr. Watson. Please see addendum. Admission and Anticipated Discharge Date Admission Date: December 28, 2019 Supervising Physician Co-Signing Physician Notes Patient is seen and examined at bedside Back pain at surgical site is controlled +Flatus, No BM today Offers no other complaints Physical Exam: Vitals signs as noted above General Appearance:Obese, no apparent distress Head: normocephalic, Atraumatic Eyes: normal inspection, EOMI Neck: supple, Trachea midline Respiratory/Chest: Normal breath sounds, CTA Cardiovascular: S1, S2, No murmur Abdomen/GI:Soft, Non tender, Bowel sounds present Back: Surgical site in dressing, +Drain Extremities/Musculoskelatal:normal inspection, no edema Neurologic/Psych:AAOX3, grossly no focal neurological deficits Skin: normal color, warm Lumbar spinal stenosis Acute postop blood loss anemia S/P L4-L5 decompression fusion by Dr. Pina POD #2 Pain control Activity, DVT prophylaxis, wound care as per primary team Continue bowel regimen to prevent constipation Monitor CBC Continue incentive spirometry Orthopedics following Hypoxia No signs of COPD exacerbation Continue home inhalers PRN albuterol Titrate supplemental oxygen to keep sats between 88 to 92%. CXR today: No significant change compared to the prior study. No acute process. May need 2 step prior to discharge I personally reviewed the record. Patient is interviewed and examined at bedside. Patient's care is coordinated with Evy Hernandez PA-C. Please refer to the documentation above for details of patient's presentation and for discussion of other issues. Subjective Patient seen and examined in 315-1. Mild surgical site pain with movement. Tolerating diet well, no nausea or vomiting. Denies lightheadedness, visual guy ges, chest pain or SOB. No abdominal pain. Urinating without issue. + Flatus, no BM yet. Review of Systems Review of Systems: At least ten systems reviewed and negative except as noted in the HPI. Physical Exam Physical Exam: General Appearance: WD/WN, vitals as above, NAD, pleasant, conversing easily Head: normocephalic, atraumatic Eyes: normal inspection ENT: external ear and nose normal, oropharynx normal Neck: normal visual inspection, trachea midline, no thyromegaly Respiratory: normal respiratory effort, lungs clear to auscultation, no wheeze, rales, rhonchi. No accessory muscle use Cardiovascular: regular rate, rhythm, no murmur, normal peripheral pulses, no BLE edema Abdomen/GI: normal bowel sounds, soft, nontender, no hepatosplenomegaly Extremities/Musculoskeletal: +lumbosacral surgical dressing, THA drain visualized. No cyanosis or clubbing, extremities motor strength 5/5 Neurologic: PERRL, CN's II-XI intact bilaterally and moves all extremities Psychiatric: A+Ox3, euthymic affect Skin: no rashes, normal color, warm/dry Results & Data Results & Data ([facility]) Vital Signs (Past 12 Hours) Vital Signs Temp Pulse Resp BP Pulse Ox 12/30/19 07:12 36.4 C L 58 L 16 118/73 93 12/29/19 23:33 37.0 C 61 18 109/64 92 Laboratory Results Short CBC 12/30/19 Range/Units 06:46 WBC 11.85 H (4.8-10.8) K/uL Hgb 10.4 L (12.0-16.0) g/dL Hct 33.0 L (37-47) % Plt Count 304 (130-400) K/uL BMP 12/30/19 06:46 Sodium 140 Potassium 3.9 Chloride 108 H Carbon Dioxide 26 BUN 18 Creatinine 0.74 Glucose 100 H Calcium 8.5
[2019-12-30] MEDS: DEXAMETHASONE SOD PHOSPHATE 8 MG in SYRINGE 0 ML IV SCH (10:15)
[2019-12-30] MEDS: FLUTICASONE/VILANTEROL 200/25MCG 14 PUFFS/INHALER INH SCH (21:13)
[2019-12-30] MEDS: PRAVASTATIN SOD 40 MG TAB PO SCH (21:14)
[2019-12-30] MEDS: ASPIRIN 81 MG ECTAB PO SCH (21:14)
[2019-12-30] MEDS: DOCUSATE SODIUM/SENNA 50/8.6MG TAB PO SCH (21:15)
[2019-12-30] MEDS: MONTELUKAST SODIUM 10 MG TABLET PO SCH (21:15)
[2019-12-31] MEDS: HYDROCODONE/ACETAMOPHEN 5/325MG TAB PO PRN ×2 (01:29→14:13)
[2019-12-31] MEDS: POLYETHYLENE (MIRALAX) 17 GM PACK PO SCH ×2 (05:19→13:38)
[2019-12-31 06:41] LABS: Hematocrit (blood only) 35.2 % (37-47); Hemoglobin 10.7 g/dL (12.0-16.0); Mean Corpuscular Hgb Conc 30.4 g/dL (32-36); Mean Corpuscular Volume 88.7 fL (80-100); Mean Platelet Volume 9.1 fL (7.4-10.4); Platelet Count 379 K/uL (130-400); RDW Coefficient of Variation 15.6 % (11.5-14.5); RDW Standard Deviation 50.6 fL (36.4-46.3); Red Blood Count 3.97 M/uL (4.2-5.4); White Blood Count 14.03 K/uL (4.8-10.8)
[2019-12-31 07:17] LABS: BUN Creatinine Ratio 24.1 (10-20); Calcium 9.5 mg/dl (8.5-10.1); Creatinine Clr Calc Pharmacy 78.1 ml/min; Est GFR (African American) 101.3; Est GFR (Non-African American) 87.4; Magnesium 2.6 mg/dl (1.8-2.4); Potassium 3.9 mmol/L (3.5-5.1)
[2019-12-31] MEDS: VITAMIN B COMPLEX TAB PO SCH (08:58)
[2019-12-31] MEDS: FERROUS SULFATE 325 MG TAB PO SCH (08:58)
[2019-12-31] MEDS: MULTIVITAMIN TAB PO SCH (08:58)
[2019-12-31] MEDS: BISOPROLOL FUMARATE 5 MG TAB PO SCH (08:59)
[2019-12-31] MEDS: ASCORBIC ACID 500 MG TAB PO SCH (08:59)
[2019-12-31] MEDS: CALCIUM CARBONATE 1250MG TAB PO SCH (08:59)
[2019-12-31] MEDS: CHOLECALCIFEROL 1,000 UNITS 25 MCG TAB PO SCH (09:00)
[2019-12-31] MEDS: DEXAMETHASONE SOD PHOSPHATE 8 MG in SYRINGE 0 ML IV SCH (09:01)
--- NOTE | 2019-12-31 10:24 | Discharge Summary ---
Date of Service December 31, 2019 Admission HPI Per Admitting Provider This is a 74-year-old female presents with back and leg pain after failing course of nonoperative care is here for surgical intervention. Principal Diagnosis Lumbar spinal stenosis with neurogenic claudication Discharge Data Allergies Allergy/AdvReac Type Severity Reaction Status Date / Time hydromorphone [From Dilaudid] Allergy Mild ITCHY Verified 12/28/19 11:37 Iodinated Contrast Media Allergy Mild ITCHING Verified 12/28/19 11:37 codeine AdvReac Mild NAUSEA AND Verified 12/28/19 11:37 VOMITING Penicillins AdvReac Mild FOGGY Verified 12/28/19 11:37 HEAD, DISORIENTED duloxetine [From Cymbalta] AdvReac Unknown Unknown Verified 12/28/19 11:37 tramadol AdvReac Unknown Unknown Verified 12/28/19 11:37 Consultations 12/28/19 16:58 Consult Case Management - Discharge Planning Routine Consult Hospitalist Routine Procedures Performed Operation Date: 12/28/19 12:55 Actual Procedures p L4-L5 Decompression and Fusion,and interbody at L4-L5, Spinal Cord Monitoring(Not Applicable) - Boubacar Pina DO Ordered Studies 12/28/19 12:55 FL fluoroscopy <1hr Routine FL lumbar spine 2-3V Routine Hospital Course (1) Neurogenic claudication due to lumbar spinal stenosis: Patient with lumbar decompression fusion tolerated well was taken to orthopedic floor postoperative. Postop day 1 she was up and ambulating tolerating physical therapy well. Progressed to postop day #2 on postop day 3 THA drainage decreased probably. Pain well controlled. Strength intact. Subsequent discharge home. Discharge orders and instructions were on the chart for further review. Total Time Total Time Spent Total Time Spent (In Minutes): 20 minutes Discharge Plan Discharge Items Patient Disposition: Home - Self-Care Reason For Visit: Spinal Stenosis, Lumbar Region with Neurogenic Cla Discharge Diagnosis: Lumbar spinal stenosis with neurogenic claudication Activity: As commented below Non-emergency contact: Primary Care Provider Call non-emergency contact if: you have any medication questions Follow-up/Referrals: PCP,NO [Primary Care Provider] - Diet: Regular Addtl Attending Provider Instructions: ACTIVITY RECOMMENDATIONS: SELF CARE INSTRUCTIONS AFTER THORACIC/LUMBAR FUSIONS 1. You may walk to your tolerance. It is good exercise for your legs and back. Expect some back and intermittent leg aches and pains. 2. You may perform "counter-top" level activities (make a sandwich, chuy with a project, etc.). 3. No bending or lifting of more than 10 pounds or back twisting of any nature (roll like a log when turning in bed). 4. You may ride in a car for 20-30 minutes at a time. No driving until after your first visit with your doctor. 5. Frequent changes of position and restricting sitting to 30 minutes at a time will help limit the amount of back spasms and stiffness you may experience. 6. You may discontinue the use of ambulatory aids (cane, crutches, etc.) once your strength and confidence allow. 7. 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 Do not take a tub bath, sit in a hot tub or go into a swimming pool until after your first recheck in the office. SPECIAL CARE INSTRUCTIONS: VERY IMPORTANT TO READ AND REVIEW A. Your surgical incision has been closed with a cosmetic suture under the skin that will dissolve in about 6 weeks. In 14 days, you can use a pair of clean scissors and cut the suture that is left outside of the skin at the ends of your incision. 1. The small skin tapes can be removed 7 days after surgery if they have not fallen off by that point. 2. You may keep the wound open to air as much as possible to promote healing after post-op day number 5 unless told otherwise by your doctor. 3. If you think the wound looks like it is becoming infected (redness or worsening drainage) and/or you are experiencing fever, chill or worsening back pain and muscle spasms, contact the office so that we may evaluate you as soon as possible. B. Complications are uncommon, but please contact us if you have any signs or symptoms of: 1. wound infection (fever higher than 102.5 degrees F, redness, separation of wound, drainage, or increasing pain from the incision) 2. blood clots in legs (pain, swelling, redness and warmth in legs) 3. urinary tract infection (fever higher than 102.5 degrees F, burning upon urination or increased frequency of urination) 4. nerve problems (inability to walk on your toes or heels, numbness, loss of bowel or bladder control) 5. any other symptoms that concern you C. Please call the office at if you have any concerns or questions about your operation or recovery. D. No smoking! Smoking drastically decreases the chance of a solid fusion. E. Do not take any anti-inflammatory medications (Indocin, Advil, Motrin, Aspirin, Naprosyn, etc.) as these may inhibit the chance of a solid fusion. Tylenol is okay to take for pain. MANAGING PAIN AFTER SPINAL SURGERY 1. Narcotic medication is intended for short-term use and will be provided for surgical pain. Surgical pain usually lasts for a period of 4-6 weeks. Narcotic medication includes Percocet, Vicodin, Darvocet, Tylenol #3 or Lortab. 2. Longer-term pain is more appropriately treated with non-narcotic medication such as Tylenol ES. 3. Muscle spasm is not appropriately treated with narcotics. Muscle relaxers such as Soma, Flexeril or Skelaxin can be used along with Tylenol ES. 4. Remember that we all live with some "aches and pains". This is not unusual or uncommon after an injury or as we get older. a. Back pain is expected and may include muscle spasms for 4 to 6 weeks after surgery. The pain should gradually improve. If the pain worsens for no apparent reason, please contact the office. b. Intermittent leg pain may also be experienced and should not be concerned about unless it worsens for no apparent reason. If so, please contact the office. 5. We will provide appropriate medication within the normal guidelines of their prescribed use. We will also be very cautious and aware of potential abuse and extended duration of patients' medication needs. a. Pain medications are for your comfort and to assist with sleep and rest so that the tissue can heal. They are not provided in order to return to normal activity and should not be used through the day. To do so or worsening pain at night can result from ongoing tissue damage and development of tolerance to the prescribed medicine. 6. Please allow 2-3 days to process refills. Prescriptions will not be mailed but must be picked up at the office. FOLLOW UP VISIT: Keep your scheduled follow-up appointment. Any questions, please call the office at . Pending Studies at Discharge: No Stand-Alone Forms: [employer] [facility] [employer], Smoking Cessation Medications and DC Order Prescriptions: New hydrocodone-acetaminophen 5-325 mg tablet See Rx Instructions .ROUTE .COMPLEX PRN (Reason: pain) Qty: 30 RF: 0 Continued multivitamin Tablet 1 tab PO QAM RF: 0 pravastatin 40 mg Tablet 40 mg PO HS RF: 0 diphenoxylate-atropine 2.5-0.025 mg Tablet 1 tab PO Q4H PRN (Reason: Diarrhea) RF: 0 aspirin [Aspir-81] 81 mg Tablet,Delayed Release (Dr/Ec) 81 mg PO HS RF: 0 acetaminophen [Arthritis Pain Reliever] 650 mg Tablet Extended Release 1,300 mg PO Q12H PRN (Reason: Pain) RF: 0 bisoprolol fumarate 5 mg Tablet 2.5 mg PO QAM RF: 0 calcium carbonate [Calcium 600] 600 mg calcium (1,500 mg) Tablet 1,200 mg PO DAILY RF: 0 montelukast 10 mg Tablet 10 mg PO HS RF: 0 budesonide-formoterol [Symbicort] 160-4.5 mcg/actuation Hfa Aerosol Inhaler 2 puff INHALATION BID RF: 0 ferrous sulfate 325 mg (65 mg iron) Tablet 325 mg PO 5XWK RF: 0 vitamin B complex Tablet 1 tab PO QAM RF: 0 cholecalciferol (vitamin D3) [Vitamin D3] 125 mcg (5,000 unit) Tablet 125 mcg PO DAILY RF: 0 ascorbic acid (vitamin C) [Vitamin C] 1,000 mg Tablet 1,000 mg PO QAM RF: 0 turmeric root extract 500 mg Capsule 1,000 mg PO BID RF: 0 Discharge Orders: Discharge Order (Routine); Ordered 12/31/19 Ordered By: Boubacar Pina Admission Data Admit Date/Time: 12/28/19 16:07 Attending Provider: Boubacar Pina Admit Provider: Boubacar Pina Primary Care Provider: PCP,NO Other Providers: Kali Watson ; Moncho Mathew
--- NOTE | 2019-12-31 13:06 | Hospitalist Progress Note ---
Date of Service December 31, 2019 Assessment & Plan (1) Neurogenic claudication due to lumbar spinal stenosis: S/P lumbar decompression / fusion. (2) Cardiomyopathy: Compensated. (3) Chronic obstructive pulmonary disease: Pulmonary status stable. Hypoxia with exercise as noted below, apparently chronic. Continue Symbicort. (4) Hypoxia: Noted to be hypoxic with ambulation. Has been on home O2 in past, but not recently. No acute pulmonary symptoms. 2-step pulse ox showed O2 sats as low as 83% on RA with exercise, corrected with 1 LPM. Arrangements made for home O2 1 LPM with activity. (5) DVT prophylaxis: Per Ortho protocol. Admission and Anticipated Discharge Date Admission Date: December 28, 2019 Subjective Recheck for medical management. Patient seen in their room around 1250. Doing well postoperatively. No chest pain, cough, SOB, nausea, vomiting. Passing flatus, but no stool. Voiding without difficulty. Ambulating. Pain well-controlled. Physical Exam Constitutional: no acute distress Respiratory: no respiratory distress Auscultation: lungs clear to auscultation bilaterally Cardiovascular: Rate/Rhythm: regular rate and regular rhythm Vessels: no JVD Extremities: no calf tenderness and no edema Gastrointestinal (Abdomen): normal bowel sounds, soft, nontender, no hepatosplenomegaly Musculoskeletal: TEDS applied Skin: no rashes, warm and dry Psychiatric: Orientation: alert and oriented x 3 Results & Data Results & Data ([facility]) Vital Signs (Past 12 Hours) Vital Signs Temp Pulse Pulse Pulse Pulse Pulse Resp 12/31/19 10:14 74 70 75 68 12/31/19 09:00 12/31/19 08:52 72 12/31/19 07:21 36.5 C 56 L 16 Resp Resp Resp Resp BP Pulse Ox Pulse Ox 12/31/19 10:14 20 20 20 18 90 12/31/19 09:00 94 12/31/19 08:52 149/88 H 82 L 12/31/19 07:21 114/74 94 Pulse Ox Pulse Ox Pulse Ox 12/31/19 10:14 83 L 90 90 12/31/19 09:00 12/31/19 08:52 12/31/19 07:21 Laboratory Results 12/31/19 05:22 12/31/19 05:22
== END 2019-12-31 14:52 | disposition home or self-care (01) | DRG 454 ==
LOC: ASU 10:56 → 3E 16:07